=== PATIENT | female | born 1940 | race Caucasian/White ===

== ENCOUNTER 2016-11-22 20:19 | Emergency (ER) | payer MEDICARE, BC ==
[~2016-11-22 20:19] MED LIST: ACTOS30 MG; ACTOS30 MG PO; AMBIEN; AMBIEN10 MG; AMBIEN5 MG PO; AMITRIPTYLINE H50 MG; B122500 MCG IV; BYSTOLIC10 M1 PO; BYSTOLIC10 MG PO; BYSTOLIC2.5 MG PO; BYSTOLIC5 MG PO; COMBIVENT1 PUFF INH; CULTURELLE1 EAC1 PO; CYANOCOBAL1000 MCG/3 SC; CYMBALTA60 MG; CYMBALTA60 MG PO; DARVOCET-N; DARVOCET-N 1001 TAB; DEMADEX20 MG PO; ECOTRIN325 M2 PO; ECOTRIN325 MG PO; ELAVIL50 MG PO; FELDENE20 MG PO; FISH OIL; FISH OIL 1,0001 CA PO; FLAGYL500 M1 PO; FUROSEMIDE20 M1 PO; HUMALOG100 U/ML; HUMALOG100 U/ML SQ; HUMALOG100 UNITS/ SC; HUMULIN N100 U/ML; HUMULIN N100 UNIT/2 SC; HYDROCODON-ACE1 EA17 PO; ISORDIL10 MG PO; K-DUR10 MEQ; KLOR-CON M1515 ME1 PO; LANSOPRAZOLE30 M2 PO; LANSOPRAZOLE30 MG PO; LASIX20 MG PO; LASIX40 MG; LEVAQUIN750 M1 PO; LIPITOR80 MG; LIPITOR80 MG PO; LISINOPRIL10 M1 PO; LISINOPRIL10 MG; LISINOPRIL10 MG PO; MONTELUKAST SOD10 M2 PO; MUCINEX50 MG PO; NITROGLYCERIN0.4 MG SL; NORCO 5-325 TA1 EACH PO; NORCO 5/3251 TA1 PO; NORVASC5 MG; NORVASC5 MG PO; NOVOLIN N100 U/ML SQ; NOVOLIN N100 UNIT/2 SC; NOVOLIN SC; NOVOLIN-R100 UNITS/ SC; PERCOCET 5MG/AP1 TA1 PO; PLAVIX75 M1 PO; PLAVIX75 MG; PLAVIX75 MG PO; POTASSIUM CHLO10 MEQ PO; PREDNISONE5 MG PO; PREMARIN0.3 MG; PREVACID30 MG; PREVACID30 MG PO; PROTONIX40 M1 PO; PROTONIX40 M2 PO; RANEXA500 M1 PO; RANEXA500 MG PO; SINGULAIR10 MG; SINGULAIR10 MG PO; THEOPHYLLINE300 MG; THEOPHYLLINE300 MG PO; TRAZODONE100 MG PO; TRICOR160 MG; TRICOR160 MG PO; ZAROXOLYN2.5 MG PO; ZETIA10 M1 PO; ZETIA10 MG; ZETIA10 MG PO; ZITHROMAX500 M1 PO; [UNRECOGNIZED DRUG - OTHER] IJ; [UNRECOGNIZED DRUG - OTHER] PO
[2016-11-22] MEDS ORDERED: OXYCODONE-ACET1 EAC3 PO (21:56)
== END 2016-11-22 22:00 ==
LOC: EDMED 20:19
DX: S22.31XA Fracture of one rib, right side, initial encounter for closed fracture (principal); S20.211A Contusion of right front wall of thorax, initial encounter; I10 Essential (primary) hypertension; E11.9 Type 2 diabetes mellitus without complications; W19.XXXA Unspecified fall, initial encounter

== ENCOUNTER 2017-03-07 10:18 | Inpatient (IN) | payer MEDICARE, BC ==
[~2017-03-07 10:18] MED LIST changes: +OXYCODONE-ACET1 EAC3 PO
[2017-03-07 11:09] LABS: BASO % 0.1 % (0-2); EOSINOPHIL ABSOLUTE COUNT 0.1 tho/cmm (0.0-0.7); HGB-HEMOGLOBIN 8.8 gm/dl (12.0-15.5); IMMATURE GRANULOCYTES ABSOLUTE 0.03 tho/cmm (0-0.03); IMMATURE GRANULOCYTES PERCENT 0.3 % (0-0.3); LYMPH % 19.4 % (20-45); LYMPH ABSOLUTE COUNT 1.9 tho/cmm (0.8-4.5); MCHC MEAN CORPUSCULAR HGB CONC 30.3 % (32.0-36.0); MCV (MEAN CELL VOLUME) 85.8 fl (82.0-96.0); MEAN PLATELET VOLUME 9.9 cmc (9.4-12.4); MONO % 6.1 % (0-12); MONOCYTE ABSOLUTE COUNT 0.6 tho/cmm (0.0-1.2); NEUTROPHIL ABSOLUTE COUNT 7.1 tho/cmm (1.6-8.0); NEUTROPHIL-AUTOMATED 7.1 tho/cmm (1.6-8.0); NEUTROPHILS % 73.1 % (40-80); PLATELET COUNT 368 tho/cmm (150-450); RED BLOOD COUNT 3.38 mil/cmm (4.00-5.20); RED CELL DISTRIBUTION WIDTH 17.3 % (12.4-16.4); WHITE BLOOD COUNT 9.7 tho/cmm (4.0-10.0)
[2017-03-07 11:25] LABS: ALB/GLOB RATIO 0.8 (0.8-2.0); ALBUMIN 3.2 g/dl (3.5-5.0); ALKALINE PHOSPHATASE 82 U/L (33-138); AST/SGOT 8 U/L (10-40); BILIRUBIN,TOTAL 0.5 mg/dl (0-1.5); BLOOD UREA NITROGEN 15 mg/dl (6-24); CALCIUM 7.6 mg/dl (8.5-10.5); CARBON DIOXIDE-VENOUS 35 mmol/L (22-32); CHLORIDE 98 mmol/l (96-110); GLUCOSE 175 mg/dL (70-110); SODIUM 140 mmol/L (135-145); eGFR VALUE FOR BLACK 56 mL/Min
[2017-03-07 11:28] LABS: ANION GAP 10 mmol/L (0-20)
[2017-03-07 11:29] LABS: ALT/SGPT <10 U/L (12-78)
[2017-03-07 11:31] LABS: POTASSIUM 2.5 mmol/L (3.7-5.1)
[2017-03-07] MEDS ORDERED: NEFAZODONE HCL PO (11:46)
[2017-03-07] MEDS ORDERED: DESVENLAFAXINE50 M1 PO (11:48)
[2017-03-07] MEDS ORDERED: DEMADEX20 M1 PO (11:48)
[2017-03-07] MEDS ORDERED: CYMBALTA60 M1 PO (12:51)
[2017-03-07] MEDS ORDERED: HUMALOG KW200 UNIT/1 SC (12:52)
[2017-03-07] MEDS ORDERED: POTASSIUM CHLO10 ME2 PO (12:53)
[2017-03-08 05:30] LABS: ANION GAP 11 mmol/L (0-20); BLOOD UREA NITROGEN 15 mg/dl (6-24); CALCIUM 6.9 mg/dl (8.5-10.5); CARBON DIOXIDE-VENOUS 33 mmol/L (22-32); CHLORIDE 100 mmol/l (96-110); CREATININE 1.14 mg/dl (0.50-1.10); GLUCOSE 224 mg/dL (70-110); POTASSIUM 3.4 mmol/L (3.7-5.1); SODIUM 141 mmol/L (135-145); eGFR VALUE FOR BLACK 53 mL/Min
[2017-03-08 14:20] LABS: IRON 20 ug/dl (37-170); IRON BINDING CAPACITY 354 ug/dl (250-450)
[2017-03-08 17:43] LABS: ABG CO2 ARTERIAL 32 mmol/L (21-27); ARTERIAL BLD GAS O2 SATURATION 98 % (95-98); ARTERIAL BLOOD GAS PCO2 43 mmHg (32-45); ARTERIAL PO2 110 mmHg (70-100); BICARBONATE 31 mmol/L (21-28); BLOOD GAS BASE EXCESS 7 mM/L (-/+3); PH 7.47 Units (7.35-7.45)
[2017-03-09 03:26] LABS: ANION GAP 14 mmol/L (0-20); BLOOD UREA NITROGEN 18 mg/dl (6-24); CALCIUM 7.7 mg/dl (8.5-10.5); CARBON DIOXIDE-VENOUS 31 mmol/L (22-32); CHLORIDE 102 mmol/l (96-110); CREATININE 1.18 mg/dl (0.50-1.10); GLUCOSE 307 mg/dL (70-110); MAGNESIUM 2.1 mg/dl (1.8-2.6); PHOSPHOROUS 5.4 mg/dl (2.5-4.9); POTASSIUM 4.4 mmol/L (3.7-5.1); SODIUM 143 mmol/L (135-145); eGFR VALUE FOR BLACK 51 mL/Min
[2017-03-09 05:25] LABS: ABG CO2 ARTERIAL 34 mmol/L (21-27); ARTERIAL BLD GAS O2 SATURATION 96 % (95-98); BICARBONATE 32 mmol/L (21-28); BLOOD GAS BASE EXCESS 6 mM/L (-/+3)
[2017-03-09 05:26] LABS: ARTERIAL BLOOD GAS PCO2 56 mmHg (32-45); ARTERIAL PO2 91 mmHg (70-100); PH 7.37 Units (7.35-7.45)
[2017-03-09 11:59] LABS: URINE APPEARANCE CLEAR; URINE BILIRUBIN NEGATIVE (NEG); URINE BLOOD NEGATIVE (NEG); URINE COLOR YELLOW; URINE GLUCOSE (UA) NEGATIVE (NEG); URINE KETONE NEGATIVE (NEG); URINE LEUKOCYTE ESTERASE NEGATIVE (NEG); URINE NITRITE NEGATIVE (NEG); URINE PROTEIN MODERATE (NEG)
[2017-03-09 12:06] LABS: URINE EPITHELIAL CELLS 0-3 /[HPF] (0-10); URINE RBC 0-2 /[HPF] (0-5); URINE WBC 0-2 /[HPF] (0-5)
[2017-03-09 12:14] LABS: URINE TOTAL PROTEIN-RANDOM 35.9 mg/dl (<11.8)
[2017-03-09 13:07] LABS: URINE PRT/CR RATIO 0.85 Ratio (0.0-0.20)
[2017-03-10 07:44] LABS: ANION GAP 12 mmol/L (0-20); BLOOD UREA NITROGEN 18 mg/dl (6-24); CALCIUM 8.1 mg/dl (8.5-10.5); CARBON DIOXIDE-VENOUS 31 mmol/L (22-32); CHLORIDE 102 mmol/l (96-110); CREATININE 1.15 mg/dl (0.50-1.10); GLUCOSE 188 mg/dL (70-110); POTASSIUM 3.9 mmol/L (3.7-5.1); SODIUM 141 mmol/L (135-145); eGFR VALUE FOR BLACK 53 mL/Min
[2017-03-10 11:44] LABS: BASO % 0.1 % (0-2); EOS % 1.6 % (0-7); EOSINOPHIL ABSOLUTE COUNT 0.2 tho/cmm (0.0-0.7); HCT-HEMATOCRIT 29.9 % (34.0-49.0); HGB-HEMOGLOBIN 8.7 gm/dl (12.0-15.5); IMMATURE GRANULOCYTES ABSOLUTE 0.02 tho/cmm (0-0.03); IMMATURE GRANULOCYTES PERCENT 0.2 % (0-0.3); LYMPH % 15.2 % (20-45); LYMPH ABSOLUTE COUNT 1.6 tho/cmm (0.8-4.5); MCHC MEAN CORPUSCULAR HGB CONC 29.1 % (32.0-36.0); MCV (MEAN CELL VOLUME) 89.5 fl (82.0-96.0); MEAN PLATELET VOLUME 10.3 cmc (9.4-12.4); MONO % 4.7 % (0-12); MONOCYTE ABSOLUTE COUNT 0.5 tho/cmm (0.0-1.2); NEUTROPHIL ABSOLUTE COUNT 8.1 tho/cmm (1.6-8.0); NEUTROPHIL-AUTOMATED 8.1 tho/cmm (1.6-8.0); NEUTROPHILS % 78.2 % (40-80); PLATELET COUNT 424 tho/cmm (150-450); RED BLOOD COUNT 3.34 mil/cmm (4.00-5.20); RED CELL DISTRIBUTION WIDTH 17.9 % (12.4-16.4); WHITE BLOOD COUNT 10.3 tho/cmm (4.0-10.0)
[2017-03-10] MEDS ORDERED: ALDACTONE25 M1 PO (15:50)
[2017-03-10] MEDS ORDERED: STOP THE FOLLOWING (15:56)
[2017-03-10] MEDS ORDERED: FEOSOL325 M1 PO (15:57)
== END 2017-03-10 16:55 | disposition home health service (06) | DRG 291 ==
LOC: EDMED 10:18 → EMR2 14:30 → 5WE 16:07
PROVIDERS: Emergency Medicine; Internal Medicine; Internal Medicine Interventional Cardiology; Internal Medicine Nephrology; Registered Nurse; ADMIT Internal Medicine
PROC: 5A09357 Assistance with Respiratory Ventilation, Less than 24 Consecutive Hours, Continuous Positive Airway Pressure (ICD-10-PCS; principal; 2017-03-08)
DX: I13.0 Hypertensive heart and chronic kidney disease with heart failure and stage 1 through stage 4 chronic kidney disease, or unspecified chronic kidney disease (principal); I50.33 Acute on chronic diastolic (congestive) heart failure; E87.3 Alkalosis; J96.11 Chronic respiratory failure with hypoxia; G47.33 Obstructive sleep apnea (adult) (pediatric); Z99.81 Dependence on supplemental oxygen; Z91.19 Patient's noncompliance with other medical treatment and regimen; E87.6 Hypokalemia; E11.22 Type 2 diabetes mellitus with diabetic chronic kidney disease; N18.3 Chronic kidney disease, stage 3 (moderate); D50.9 Iron deficiency anemia, unspecified; I25.10 Atherosclerotic heart disease of native coronary artery without angina pectoris; E11.40 Type 2 diabetes mellitus with diabetic neuropathy, unspecified; E66.09 Other obesity due to excess calories; M35.3 Polymyalgia rheumatica; F41.9 Anxiety disorder, unspecified; Z79.4 Long term (current) use of insulin; F32.9 Major depressive disorder, single episode, unspecified; Z88.8 Allergy status to other drugs, medicaments and biological substances; Z79.82 Long term (current) use of aspirin; Z79.02 Long term (current) use of antithrombotics/antiplatelets; E83.51 Hypocalcemia; E83.39 Other disorders of phosphorus metabolism; E83.42 Hypomagnesemia; G25.81 Restless legs syndrome; Z91.81 History of falling; Z95.5 Presence of coronary angioplasty implant and graft; I34.0 Nonrheumatic mitral (valve) insufficiency; Z68.34 Body mass index [BMI] 34.0-34.9, adult; J44.9 Chronic obstructive pulmonary disease, unspecified
CPT/HCPCS: A9540; A9558; J1650; J1756; J1815; J1940; J3475; J3480; J7030; J7050